=== PATIENT | male | born 1970 | race Caucasian/White ===

== ENCOUNTER 2018-03-05 07:55 | Outpatient (CLI) | payer OTHER ==
[~2018-03-05 07:55] MED LIST: MOTRIN800 MG PO
== END 2018-03-05 08:00 | disposition home or self-care (01) ==
LOC: TOM 07:55
DX: R10.84 Generalized abdominal pain (principal); R10.2 Pelvic and perineal pain; K57.32 Diverticulitis of large intestine without perforation or abscess without bleeding

== ENCOUNTER 2021-08-27 01:00 | Outpatient (CLI) | payer OTHER | END 2021-08-27 01:30 | disposition home or self-care (01) | LOC: PPH VACUNA 01:00 | PROVIDERS: ATTEND Emergency Medicine Pediatric Emergency Medicine | DX: Z23 Encounter for immunization (principal) ==

== ENCOUNTER 2023-07-13 07:20 | Outpatient (CLI) | payer OTHER | END 2023-07-13 07:26 | disposition home or self-care (01) | LOC: NUCLEAR 07:20 | PROVIDERS: ATTEND Physical Medicine & Rehabilitation | DX: M06.4 Inflammatory polyarthropathy (principal) ==